=== PATIENT | male | born 1970 | race African-American/Black ===

== ENCOUNTER 2018-07-17 05:29 | Inpatient (IN) ==
[2018-07-17 05:55] LABS: Bilirubin,Urine Negative (Negative); Blood,Urine Negative (Negative); Clarity,Urine Clear (Clear); Color,Urine Yellow (Yellow); Glucose,Urine (UA) Normal (Normal); Ketones,Urine Negative (Negative); Leukocyte Esterase,Urine Negative (Negative); Nitrite,Urine Negative (Negative); Protein,Urine Negative (Neg-Trace); Specific Gravity,Urine 1.017 (1.010-1.025); Urobilinogen,Urine Normal (Normal)
--- NOTE | 2018-07-17 05:56 | Emergency Department Note ---
Disposition Clinical Impression: Suicidal ideation Disposition: Still a Patient Condition: Fair Referrals: NONE,PCP [Primary Care Provider] - Forms: ED Satisfaction Letter Psych HPI - General Chief Complaint: ED Psychiatric Symptoms Stated Complaint: SI Time Seen by Provider: 07/17/18 05:37 Source: patient - Related Data Allergies Allergy/AdvReac Type Severity Reaction Status Date / Time No Known Allergies Allergy Verified 03/05/17 16:57 Past Medical History - Past Medical History Medical history: Reports: no medical history Psychiatric history: Reports: anxiety, depression, previous psychiatric hospitalization - Social History Smoking Status: Current every day smoker Smokeless Tobacco Status: No Alcohol use: Reports: occasionally Drug use: Reports: cocaine, marijuana Physical Exam - General Limitations: no limitations General appearance: alert, in no apparent distress Course Vital Signs Temperature 97.6 F 07/17/18 05:33 Pulse Rate 69 07/17/18 05:33 Respiratory Rate 16 07/17/18 05:33 Blood Pressure 138/95 07/17/18 05:33 O2 Sat by Pulse Oximetry 97 07/17/18 05:33 Temperature 97.6 F 07/17/18 05:33 Pulse Rate 69 07/17/18 05:33 Respiratory Rate 16 07/17/18 05:33 Blood Pressure 138/95 07/17/18 05:33 O2 Sat by Pulse Oximetry 97 07/17/18 05:33 Oxygen Delivery Oxygen Delivery Room Air Psych - Lab Data Result diagrams: 07/17/18 05:37 07/17/18 05:37 Lab Results 07/17/18 07/17/18 07/17/18 Range/Units 05:37 05:37 05:43 WBC 8.7 (4.3-11.1) K/mcL RBC 5.35 (4.19-5.50) M/mcL Hgb 15.2 (12.9-16.9) g/dL Hct 44.1 (37.5-50.1) % MCV 82.4 L (83.0-100.0) fL MCH 28.4 (28.0-33.3) pg MCHC 34.5 (31.6-35.5) g/dL RDW 12.9 (11.5-14.5) % Plt Count 532 H (140-400) K/mcL MPV 8.8 L (9.4-12.4) fL Immature Gran % 0.3 (0-4) % Seg Neutrophils % 65.3 % Lymphocytes % 22.6 % Monocytes % 9.8 % Eosinophils % 1.4 % Basophils % 0.6 % Neutrophils # 5.7 (1.6-8.9) K/mcL Lymphocytes # 2.0 (0.6-4.6) K/mcL Monocytes # 0.9 (0.0-1.3) K/mcL Eosinophils # 0.1 (0.0-0.6) K/mcL Basophils # 0.1 (0.0-0.2) K/mcL Sodium 136 (136-145) mEq/L Potassium 3.7 (3.5-5.1) mEq/L Chloride 102 (98-107) mEq/L Carbon Dioxide 26 (23-29) mEq/L BUN 16 (6-20) mg/dL Creatinine 1.27 (0.70-1.30) mg/dL Est GFR ( Amer) > 60 (> 60) Est GFR (Non-Af Amer) > 60 (> 60) BUN/Creatinine Ratio 13 (6-26) Glucose 92 (70-105) mg/dL Calculated Osmolality 283 (280-300) Calcium 9.8 (8.6-10.3) mg/dL Urine Color Yellow (Yellow) Urine Clarity Clear (Clear) Urine pH 6.0 (5.0-8.0) pH Units Ur Specific [place] 1.017 (1.010-1.025) Urine Protein Negative (Neg-Trace) mg/dL Urine Glucose (UA) Normal (Normal) mg/dL Urine Ketones Negative (Negative) mg/dL Urine Blood Negative (Negative) Urine Nitrite Negative (Negative) Urine Bilirubin Negative (Negative) Urine Urobilinogen Normal (Normal) mg/dL Ur Leukocyte Esterase Negative (Negative) Salicylates < 2.5 L (15.0-30.0) mg/dL Urine Opiates Screen (Ohvxgu=174) ng/mL Acetaminophen < 10 L (10-20) mcg/mL Ur Barbiturates Screen (Sfckbj=045) ng/mL Ur Phencyclidine Scrn (Cutoff=25) ng/mL Ur Amphetamines Screen (Klyxjj=5929) ng/mL U Benzodiazepines Scrn (Aydlta=544) ng/mL Urine Cocaine Screen (Cutoff= 300) ng/mL U Marijuana (THC) Screen (Cutoff = 50) ng/mL Ur Drug Screen Interp Ethyl Alcohol < 10 (Less than 10) mg/dL 07/17/18 Range/Units 05:43 WBC (4.3-11.1) K/mcL RBC (4.19-5.50) M/mcL Hgb (12.9-16.9) g/dL Hct (37.5-50.1) % MCV (83.0-100.0) fL MCH (28.0-33.3) pg MCHC (31.6-35.5) g/dL RDW (11.5-14.5) % Plt Count (140-400) K/mcL MPV (9.4-12.4) fL Immature Gran % (0-4) % Seg Neutrophils % % Lymphocytes % % Monocytes % % Eosinophils % % Basophils % % Neutrophils # (1.6-8.9) K/mcL Lymphocytes # (0.6-4.6) K/mcL Monocytes # (0.0-1.3) K/mcL Eosinophils # (0.0-0.6) K/mcL Basophils # (0.0-0.2) K/mcL Sodium (136-145) mEq/L Potassium (3.5-5.1) mEq/L Chloride (98-107) mEq/L Carbon Dioxide (23-29) mEq/L BUN (6-20) mg/dL Creatinine (0.70-1.30) mg/dL Est GFR ( Amer) (> 60) Est GFR (Non-Af Amer) (> 60) BUN/Creatinine Ratio (6-26) Glucose (70-105) mg/dL Calculated Osmolality (280-300) Calcium (8.6-10.3) mg/dL Urine Color (Yellow) Urine Clarity (Clear) Urine pH (5.0-8.0) pH Units Ur Specific [place] (1.010-1.025) Urine Protein (Neg-Trace) mg/dL Urine Glucose (UA) (Normal) mg/dL Urine Ketones (Negative) mg/dL Urine Blood (Negative) Urine Nitrite (Negative) Urine Bilirubin (Negative) Urine Urobilinogen (Normal) mg/dL Ur Leukocyte Esterase (Negative) Salicylates (15.0-30.0) mg/dL Urine Opiates Screen Negative (Duxmmu=854) ng/mL Acetaminophen (10-20) mcg/mL Ur Barbiturates Screen Negative (Qnqjax=554) ng/mL Ur Phencyclidine Scrn Negative (Cutoff=25) ng/mL Ur Amphetamines Screen Positive H (Xvohto=9542) ng/mL U Benzodiazepines Scrn Negative (Mugfol=676) ng/mL Urine Cocaine Screen Positive H (Cutoff= 300) ng/mL U Marijuana (THC) Screen Negative (Cutoff = 50) ng/mL Ur Drug Screen Interp See Below Ethyl Alcohol (Less than 10) mg/dL Psychiatric Medical Clearance - Medical Clearance Checklist Medical History: No Social History Section defined Current Vitals: Last Vital Signs Temp 97.6 F 07/17/18 05:33 Pulse 69 07/17/18 05:33 Resp 16 07/17/18 05:33 BP 138/95 07/17/18 05:33 Pulse Ox 97 07/17/18 05:33 Psychiatric Lab Panel: Drug Levels and Toxicity 07/17/18 07/17/18 05:37 05:43 Urine Opiates Screen Negative Acetaminophen < 10 L Ur Barbiturates Screen Negative Ur Phencyclidine Scrn Negative Ur Amphetamines Screen Positive H U Benzodiazepines Scrn Negative Urine Cocaine Screen Positive H U Marijuana (THC) Screen Negative Ethyl Alcohol < 10 Abnormal Labs: Abnormal lab results MCV 82.4 fL (83.0-100.0) L 07/17/18 05:37 Plt Count 532 K/mcL (140-400) H 07/17/18 05:37 MPV 8.8 fL (9.4-12.4) L 07/17/18 05:37 Salicylates < 2.5 mg/dL (15.0-30.0) L 07/17/18 05:37 Acetaminophen < 10 mcg/mL (10-20) L 07/17/18 05:37 Ur Amphetamines Screen Positive ng/mL (Pqpwzz=9840) H 07/17/18 05:43 Urine Cocaine Screen Positive ng/mL (Cutoff= 300) H 07/17/18 05:43 Statement of Medical Clearance: I have evaluated the patient, reviewed diagnostic information, and certify that the patient's medical condition is sufficiently stable that transfer to the psychiatric unit does not pose a significant risk of deterioration. Attestation Statement - Attestation Attestation: Resident Attestation: I examined this patient and my medical decision making was reviewed with the Resident Physician. I agree with the documented findings, disposition and treatment plan as described except to the extent set forth below. We independently had [id number] contact with the patient. Resident Tavon Morris Patient with previous psychiatric history including taking mood stabilizer and antianxiety medication which she has not had for the last 2 months, presenting for evaluation of SI. Patient with recent cocaine use. Patient having thoughts of SI wanting to shoot himself. Access to guns. Guns were given to his son by his girlfriend. Patient will undergo further evaluation for suicidal ideation. No acute distress, conversational, equal and symmetric chest rise, ambulates without difficulty. Please see resident note for further details and disposition.
--- NOTE | 2018-07-17 05:59 | Emergency Department Note ---
Disposition Clinical Impression: Suicidal ideation Disposition: Still a Patient Condition: Fair Referrals: NONE,PCP [Primary Care Provider] - Forms: ED Satisfaction Letter General Adult HPI - General Chief complaint: ED Psychiatric Symptoms Stated complaint: SI Time Seen by Provider: 07/17/18 05:37 Source: patient Mode of arrival: ambulatory Limitations: no limitations Nursing Notes Reviewed: Yes Vital Signs Reviewed: Yes - History of Present Illness HPI Narrative: 48-year-old male presenting to the emergency department chief complaint of suicidal ideation. According to the patient he has had suicidal ideation for the past 3 days. He had a plan of shooting himself. His girlfriend gave all of his guns to his son so he would not have access. Patient denies homicidal ideation. Denies auditory or visual hallucinations. Patient states he has been hospitalized for this previously but was years ago. He was on a mood stabilizer and antianxiety medications but stopped taking it 12 months ago because he was feeling better. Patient does disclose cocaine abuse. At this time patient has no medical concerns or complaints. Pain Scale: 0 - Related Data Allergies Allergy/AdvReac Type Severity Reaction Status Date / Time No Known Allergies Allergy Verified 03/05/17 16:57 All systems ED: reviewed and negative except as stated. Constitutional: Denies: fever, chills, weakness Eyes: Reports: as per HPI ENT ED: Reports: as per HPI Cardiovascular: Denies: chest pain, palpitations, dyspnea on exertion Respiratory: Denies: cough, dyspnea, wheezes Gastrointestinal: Denies: abdominal pain, nausea, vomiting Genitourinary: Reports: as per HPI Musculoskeletal: Reports: as per HPI Integumentary: Reports: as per HPI Neurological: Reports: as per HPI Psychiatric: Reports: depression, suicidal thoughts. Denies: homicidal thoughts , auditory hallucinations, visual hallucinations Endocrine: Reports: as per HPI Hematological/Lymphatic: Reports: as per HPI Allergic/Immunologic: Reports: as per HPI Past Medical History - Past Medical History Attestation: Yes The following information was validated with the patient. Medical history: Reports: no medical history Psychiatric history: Reports: anxiety, depression, previous psychiatric hospitalization - Social History Smoking Status: Current every day smoker Smokeless Tobacco Status: No Alcohol use: Reports: occasionally Drug use: Reports: cocaine, marijuana Physical Exam - General Limitations: no limitations General appearance: alert, in no apparent distress - Head Head exam: atraumatic, normocephalic, normal inspection - Eye Eye exam: Present: normal appearance. Absent: scleral icterus, conjunctival injection - ENT ENT exam: normal exam, mucous membranes moist - Neck Neck exam: Present: normal inspection, full ROM. Absent: tenderness, meningismus - Chest Chest inspection: Present: normal inspection, symmetric chest wall rise. Absent : tenderness, rash - Respiratory Respiratory exam: Present: normal lung sounds bilaterally. Absent: respiratory distress, wheezes - Cardiovascular Cardiovascular exam: Present: regular rate, normal rhythm, normal heart sounds - Abdominal Exam Abdominal exam: Present: soft, Non-Tender. Absent: distention, guarding, rebound - Extremities Exam Extremities exam: Present: normal inspection, full ROM - Neurological Exam Neurological exam: Present: alert, oriented X3 - Psychiatric Psychiatric exam: Present: normal affect, normal mood - Skin Skin exam: Present: warm, intact Course Course Narrative: 48-year-old male presenting for suicidal ideation. Patient did have a plan. On physical exam he is alert and oriented 3 and hemodynamically stable. No medical concerns or complaints. Physical exam benign. At this time will obtain medical clearance labs and urine analysis. We will then consult our psychiatric services 1A. Disposition pending psychiatric evaluation. Patient agrees with this plan. - Reevaluation(s) Reevaluation #1: So far patient's laboratory analysis benign. Pending psychiatric evaluation we will sign the patient out to the day team. Vital Signs Temperature 97.6 F 07/17/18 05:33 Pulse Rate 69 07/17/18 05:33 Respiratory Rate 16 07/17/18 05:33 Blood Pressure 138/95 07/17/18 05:33 O2 Sat by Pulse Oximetry 97 07/17/18 05:33 Temperature 97.6 F 07/17/18 05:33 Pulse Rate 69 07/17/18 05:33 Respiratory Rate 16 07/17/18 05:33 Blood Pressure 138/95 07/17/18 05:33 O2 Sat by Pulse Oximetry 97 07/17/18 05:33 Oxygen Delivery Oxygen Delivery Room Air Medical Decision Making - Lab Data Result diagrams: 07/17/18 05:37 Lab Results 07/17/18 07/17/18 07/17/18 Range/Units 05:37 05:43 05:43 WBC 8.7 (4.3-11.1) K/mcL RBC 5.35 (4.19-5.50) M/mcL Hgb 15.2 (12.9-16.9) g/dL Hct 44.1 (37.5-50.1) % MCV 82.4 L (83.0-100.0) fL MCH 28.4 (28.0-33.3) pg MCHC 34.5 (31.6-35.5) g/dL RDW 12.9 (11.5-14.5) % Plt Count 532 H (140-400) K/mcL MPV 8.8 L (9.4-12.4) fL Immature Gran % 0.3 (0-4) % Seg Neutrophils % 65.3 % Lymphocytes % 22.6 % Monocytes % 9.8 % Eosinophils % 1.4 % Basophils % 0.6 % Neutrophils # 5.7 (1.6-8.9) K/mcL Lymphocytes # 2.0 (0.6-4.6) K/mcL Monocytes # 0.9 (0.0-1.3) K/mcL Eosinophils # 0.1 (0.0-0.6) K/mcL Basophils # 0.1 (0.0-0.2) K/mcL Urine Color Yellow (Yellow) Urine Clarity Clear (Clear) Urine pH 6.0 (5.0-8.0) pH Units Ur Specific [place] 1.017 (1.010-1.025) Urine Protein Negative (Neg-Trace) mg/dL Urine Glucose (UA) Normal (Normal) mg/dL Urine Ketones Negative (Negative) mg/dL Urine Blood Negative (Negative) Urine Nitrite Negative (Negative) Urine Bilirubin Negative (Negative) Urine Urobilinogen Normal (Normal) mg/dL Ur Leukocyte Esterase Negative (Negative) Urine Opiates Screen Negative (Rpxnpk=364) ng/mL Ur Barbiturates Screen Negative (Js[place]aw=071) ng/mL Ur Phencyclidine Scrn Negative (Cutoff=25) ng/mL Ur Amphetamines Screen Positive H (Bsbjde=6149) ng/mL U Benzodiazepines Scrn Negative (Ksonvd=113) ng/mL Urine Cocaine Screen Positive H (Cutoff= 300) ng/mL U Marijuana (THC) Screen Negative (Cutoff = 50) ng/mL Ur Drug Screen Interp See Below
[2018-07-17 06:02] LABS: Amphetamine Screen,Urine Positive ng/mL (Cutoff=1000); Barbiturate Screen,Urine Negative ng/mL (Cutoff=200); Benzodiazepines Screen,Urine Negative ng/mL (Cutoff=200); Cannabinoid Screen,Urine Negative ng/mL (Cutoff = 50); Cocaine Screen,Urine Positive ng/mL (Cutoff= 300); Opiate Screen,Urine Negative ng/mL (Cutoff=300); Phencyclidine Screen,Urine Negative ng/mL (Cutoff=25)
[2018-07-17 06:02] LABS: Basophils # 0.1 K/mcL (0.0-0.2); Basophils % 0.6 %; Eosinophils # 0.1 K/mcL (0.0-0.6); Eosinophils % 1.4 %; Hematocrit 44.1 % (37.5-50.1); Hemoglobin 15.2 g/dL (12.9-16.9); Immature Granulocytes % 0.3 % (0-4); Lymphocytes % 22.6 %; Mean Corpuscular HGB Conc 34.5 g/dL (31.6-35.5); Mean Corpuscular Hemoglobin 28.4 pg (28.0-33.3); Mean Corpuscular Volume 82.4 fL (83.0-100.0); Mean Platelet Volume 8.8 fL (9.4-12.4); Monocytes # 0.9 K/mcL (0.0-1.3); Monocytes % 9.8 %; Neutrophils # 5.7 K/mcL (1.6-8.9); Platelet Count 532 K/mcL (140-400); Red Blood Count 5.35 M/mcL (4.19-5.50); Red Cell Distribution Width 12.9 % (11.5-14.5); Segmented Neutrophils % 65.3 %
[2018-07-17 06:27] LABS: Acetaminophen < 10 mcg/mL (10-20); BUN/Creatinine Ratio 13 (6-26); Blood Urea Nitrogen 16 mg/dL (6-20); Calcium 9.8 mg/dL (8.6-10.3); Carbon Dioxide 26 mEq/L (23-29); Chloride 102 mEq/L (98-107); Ethanol < 10 mg/dL (Less than 10); Glucose 92 mg/dL (70-105); Osmolality,Calculated 283 (280-300); Potassium 3.7 mEq/L (3.5-5.1); Salicylate < 2.5 mg/dL (15.0-30.0); Sodium 136 mEq/L (136-145); eGFR For Non-African Americans > 60 (> 60)
[2018-07-17] MEDS ORDERED: Acetaminophen 325 MG TABLET PO PRN (10:02)
[2018-07-17] MEDS ORDERED: MOM Conc 10 ML UD.LIQ PO PRN (10:02)
[2018-07-17] MEDS ORDERED: Haloperidol Lactate 5 MG/ML VIAL IM PRN (10:02)
[2018-07-17] MEDS ORDERED: *HR* LORazepam 2 MG/ML VIAL IM PRN (10:02)
[2018-07-17] MEDS ORDERED: *HR* LORazepam 1 MG TABLET PO PRN (10:02)
[2018-07-17] MEDS ORDERED: Mag Hydrox/Al Hydrox/Simeth 30 ML UDC PO PRN (10:02)
--- NOTE | 2018-07-17 11:25 | Emergency Department Note ---
Disposition Clinical Impression: Suicidal ideation Disposition: Transfer Psychiatric Hosp Condition: Fair Psych HPI - General Chief Complaint: ED Psychiatric Symptoms Stated Complaint: SI Time Seen by Provider: 07/17/18 05:37 Source: patient Mode of arrival: ambulatory Limitations: no limitations Nursing Notes Reviewed: Yes Vital Signs Reviewed: Yes - Related Data Home Medications Medication Instructions Recorded Confirmed Venlafaxine HCl [Venlafaxine HCl 75 mg PO QAM 07/17/18 07/17/18 ER] traZODone [TraZODone] 50 mg PO HS PRN 07/17/18 07/17/18 Allergies Allergy/AdvReac Type Severity Reaction Status Date / Time No Known Allergies Allergy Verified 03/05/17 16:57 Constitutional: Denies: fever, chills, weakness Eyes: Reports: as per HPI ENT ED: Reports: as per HPI Cardiovascular: Denies: chest pain, palpitations, dyspnea on exertion Respiratory: Denies: cough, dyspnea, wheezes Gastrointestinal: Denies: abdominal pain, nausea, vomiting Genitourinary: Reports: as per HPI Musculoskeletal: Reports: as per HPI Integumentary: Reports: as per HPI Neurological: Reports: as per HPI Psychiatric: Reports: depression, suicidal thoughts. Denies: homicidal thoughts, auditory hallucinations, visual hallucinations Endocrine: Reports: as per HPI Hematological/Lymphatic: Reports: as per HPI Allergic/Immunologic: Reports: as per HPI Past Medical History - Past Medical History Medical history: Reports: no medical history Psychiatric history: Reports: anxiety, depression, previous psychiatric hospitalization - Social History Smoking Status: Current every day smoker Smokeless Tobacco Status: No Alcohol use: Reports: occasionally Drug use: Reports: cocaine, marijuana Physical Exam - General Limitations: no limitations General appearance: alert, in no apparent distress Course Vital Signs Temperature 97.6 F 07/17/18 05:33 Pulse Rate 69 07/17/18 05:33 Respiratory Rate 16 07/17/18 05:33 Blood Pressure 138/95 07/17/18 05:33 O2 Sat by Pulse Oximetry 97 07/17/18 05:33 Temperature 98.4 F 07/17/18 10:45 Pulse Rate 63 07/17/18 10:45 Respiratory Rate 18 07/17/18 10:45 Blood Pressure 127/84 07/17/18 10:45 O2 Sat by Pulse Oximetry 98 07/17/18 10:45 Oxygen Delivery Oxygen Delivery Room Air Psych - MDM Narrative Medical decision making narrative: Pt received in sign out pending placement. Pt is scheduled for transport to [facility] at 7:30 AM. He was signed out pending placement. Patient had no further concerns or complaints. He went to the [facility] without delay or incident. - Lab Data Result diagrams: 07/17/18 05:37 07/17/18 05:37 Lab Results 07/17/18 07/17/18 07/17/18 Range/Units 05:37 05:37 05:43 WBC 8.7 (4.3-11.1) K/mcL RBC 5.35 (4.19-5.50) M/mcL Hgb 15.2 (12.9-16.9) g/dL Hct 44.1 (37.5-50.1) % MCV 82.4 L (83.0-100.0) fL MCH 28.4 (28.0-33.3) pg MCHC 34.5 (31.6-35.5) g/dL RDW 12.9 (11.5-14.5) % Plt Count 532 H (140-400) K/mcL MPV 8.8 L (9.4-12.4) fL Immature Gran % 0.3 (0-4) % Seg Neutrophils % 65.3 % Lymphocytes % 22.6 % Monocytes % 9.8 % Eosinophils % 1.4 % Basophils % 0.6 % Neutrophils # 5.7 (1.6-8.9) K/mcL Lymphocytes # 2.0 (0.6-4.6) K/mcL Monocytes # 0.9 (0.0-1.3) K/mcL Eosinophils # 0.1 (0.0-0.6) K/mcL Basophils # 0.1 (0.0-0.2) K/mcL Sodium 136 (136-145) mEq/L Potassium 3.7 (3.5-5.1) mEq/L Chloride 102 (98-107) mEq/L Carbon Dioxide 26 (23-29) mEq/L BUN 16 (6-20) mg/dL Creatinine 1.27 (0.70-1.30) mg/dL Est GFR ( Amer) > 60 (> 60) Est GFR (Non-Af Amer) > 60 (> 60) BUN/Creatinine Ratio 13 (6-26) Glucose 92 (70-105) mg/dL Calculated Osmolality 283 (280-300) Calcium 9.8 (8.6-10.3) mg/dL Urine Color Yellow (Yellow) Urine Clarity Clear (Clear) Urine pH 6.0 (5.0-8.0) pH Units Ur Specific [place] 1.017 (1.010-1.025) Urine Protein Negative (Neg-Trace) mg/dL Urine Glucose (UA) Normal (Normal) mg/dL Urine Ketones Negative (Negative) mg/dL Urine Blood Negative (Negative) Urine Nitrite Negative (Negative) Urine Bilirubin Negative (Negative) Urine Urobilinogen Normal (Normal) mg/dL Ur Leukocyte Esterase Negative (Negative) Salicylates < 2.5 L (15.0-30.0) mg/dL Urine Opiates Screen (Qvwltw=418) ng/mL Acetaminophen < 10 L (10-20) mcg/mL Ur Barbiturates Screen (Jssspc=365) ng/mL Ur Phencyclidine Scrn (Cutoff=25) ng/mL Ur Amphetamines Screen (Nmlrlz=3739) ng/mL U Benzodiazepines Scrn (Lxknqe=634) ng/mL Urine Cocaine Screen (Cutoff= 300) ng/mL U Marijuana (THC) Screen (Cutoff = 50) ng/mL Ur Drug Screen Interp Ethyl Alcohol < 10 (Less than 10) mg/dL 07/17/18 Range/Units 05:43 WBC (4.3-11.1) K/mcL RBC (4.19-5.50) M/mcL Hgb (12.9-16.9) g/dL Hct (37.5-50.1) % MCV (83.0-100.0) fL MCH (28.0-33.3) pg MCHC (31.6-35.5) g/dL RDW (11.5-14.5) % Plt Count (140-400) K/mcL MPV (9.4-12.4) fL Immature Gran % (0-4) % Seg Neutrophils % % Lymphocytes % % Monocytes % % Eosinophils % % Basophils % % Neutrophils # (1.6-8.9) K/mcL Lymphocytes # (0.6-4.6) K/mcL Monocytes # (0.0-1.3) K/mcL Eosinophils # (0.0-0.6) K/mcL Basophils # (0.0-0.2) K/mcL Sodium (136-145) mEq/L Potassium (3.5-5.1) mEq/L Chloride (98-107) mEq/L Carbon Dioxide (23-29) mEq/L BUN (6-20) mg/dL Creatinine (0.70-1.30) mg/dL Est GFR ( Amer) (> 60) Est GFR (Non-Af Amer) (> 60) BUN/Creatinine Ratio (6-26) Glucose (70-105) mg/dL Calculated Osmolality (280-300) Calcium (8.6-10.3) mg/dL Urine Color (Yellow) Urine Clarity (Clear) Urine pH (5.0-8.0) pH Units Ur Specific [place] (1.010-1.025) Urine Protein (Neg-Trace) mg/dL Urine Glucose (UA) (Normal) mg/dL Urine Ketones (Negative) mg/dL Urine Blood (Negative) Urine Nitrite (Negative) Urine Bilirubin (Negative) Urine Urobilinogen (Normal) mg/dL Ur Leukocyte Esterase (Negative) Salicylates (15.0-30.0) mg/dL Urine Opiates Screen Negative (Xqnplg=476) ng/mL Acetaminophen (10-20) mcg/mL Ur Barbiturates Screen Negative (Mcnprq=820) ng/mL Ur Phencyclidine Scrn Negative (Cutoff=25) ng/mL Ur Amphetamines Screen Positive H (Ckmmie=9621) ng/mL U Benzodiazepines Scrn Negative (Lqwarh=111) ng/mL Urine Cocaine Screen Positive H (Cutoff= 300) ng/mL U Marijuana (THC) Screen Negative (Cutoff = 50) ng/mL Ur Drug Screen Interp See Below Ethyl Alcohol (Less than 10) mg/dL Psychiatric Medical Clearance - Medical Clearance Checklist Medical History: No Social History Section defined Current Vitals: Last Vital Signs Temp 98.4 F 07/17/18 10:45 Pulse 63 07/17/18 10:45 Resp 18 07/17/18 10:45 BP 127/84 07/17/18 10:45 Pulse Ox 98 07/17/18 10:45 Psychiatric Lab Panel: Drug Levels and Toxicity 07/17/18 07/17/18 05:37 05:43 Urine Opiates Screen Negative Acetaminophen < 10 L Ur Barbiturates Screen Negative Ur Phencyclidine Scrn Negative Ur Amphetamines Screen Positive H U Benzodiazepines Scrn Negative Urine Cocaine Screen Positive H U Marijuana (THC) Screen Negative Ethyl Alcohol < 10 Abnormal Labs: Abnormal lab results MCV 82.4 fL (83.0-100.0) L 07/17/18 05:37 Plt Count 532 K/mcL (140-400) H 07/17/18 05:37 MPV 8.8 fL (9.4-12.4) L 07/17/18 05:37 Salicylates < 2.5 mg/dL (15.0-30.0) L 07/17/18 05:37 Acetaminophen < 10 mcg/mL (10-20) L 07/17/18 05:37 Ur Amphetamines Screen Positive ng/mL (Wbwfhn=9689) H 07/17/18 05:43 Urine Cocaine Screen Positive ng/mL (Cutoff= 300) H 07/17/18 05:43 Statement of Medical Clearance: I have evaluated the patient, reviewed diagnostic information, and certify that the patient's medical condition is sufficiently stable that transfer to the psychiatric unit does not pose a significant risk of deterioration.
--- NOTE | 2018-07-17 11:31 | Emergency Department Note ---
Disposition Clinical Impression: Suicidal ideation Disposition: Admitted As Inpatient Condition: Fair Psych HPI - General Chief Complaint: ED Psychiatric Symptoms Stated Complaint: SI Time Seen by Provider: 07/17/18 05:37 Source: patient Mode of arrival: ambulatory Limitations: no limitations Nursing Notes Reviewed: Yes Vital Signs Reviewed: Yes - Related Data Home Medications Medication Instructions Recorded Confirmed Venlafaxine HCl [Venlafaxine HCl 75 mg PO QAM 07/17/18 07/17/18 ER] traZODone [TraZODone] 50 mg PO HS PRN 07/17/18 07/17/18 Allergies Allergy/AdvReac Type Severity Reaction Status Date / Time No Known Allergies Allergy Verified 03/05/17 16:57 Constitutional: Denies: fever, chills, weakness Eyes: Reports: as per HPI ENT ED: Reports: as per HPI Cardiovascular: Denies: chest pain, palpitations, dyspnea on exertion Respiratory: Denies: cough, dyspnea, wheezes Gastrointestinal: Denies: abdominal pain, nausea, vomiting Genitourinary: Reports: as per HPI Musculoskeletal: Reports: as per HPI Integumentary: Reports: as per HPI Neurological: Reports: as per HPI Psychiatric: Reports: depression, suicidal thoughts. Denies: homicidal thoughts , auditory hallucinations, visual hallucinations Endocrine: Reports: as per HPI Hematological/Lymphatic: Reports: as per HPI Allergic/Immunologic: Reports: as per HPI Past Medical History - Past Medical History Medical history: Reports: no medical history Psychiatric history: Reports: anxiety, depression, previous psychiatric hospitalization - Social History Smoking Status: Current every day smoker Smokeless Tobacco Status: No Alcohol use: Reports: occasionally Drug use: Reports: cocaine, marijuana Physical Exam - General Limitations: no limitations General appearance: alert, in no apparent distress Course Vital Signs Temperature 97.6 F 07/17/18 05:33 Pulse Rate 69 07/17/18 05:33 Respiratory Rate 16 07/17/18 05:33 Blood Pressure 138/95 07/17/18 05:33 O2 Sat by Pulse Oximetry 97 07/17/18 05:33 Temperature 98.4 F 07/17/18 10:45 Pulse Rate 63 07/17/18 10:45 Respiratory Rate 18 07/17/18 10:45 Blood Pressure 127/84 07/17/18 10:45 O2 Sat by Pulse Oximetry 98 07/17/18 10:45 Oxygen Delivery Oxygen Delivery Room Air Psych - MDM Narrative Medical decision making narrative: 48-year-old male received in signout pending behavioral health evaluation. Patient has had suicidal ideation with thoughts of ending his life by shooting himself. Evaluated him in the emergency department and found to be required inpatient observation. Patient will be admitted to the hospital at [facility]. Patient is comfortable with this plan of action. - Lab Data Result diagrams: 07/17/18 05:37 07/17/18 05:37 Lab Results 07/17/18 07/17/18 07/17/18 Range/Units 05:37 05:37 05:43 WBC 8.7 (4.3-11.1) K/mcL RBC 5.35 (4.19-5.50) M/mcL Hgb 15.2 (12.9-16.9) g/dL Hct 44.1 (37.5-50.1) % MCV 82.4 L (83.0-100.0) fL MCH 28.4 (28.0-33.3) pg MCHC 34.5 (31.6-35.5) g/dL RDW 12.9 (11.5-14.5) % Plt Count 532 H (140-400) K/mcL MPV 8.8 L (9.4-12.4) fL Immature Gran % 0.3 (0-4) % Seg Neutrophils % 65.3 % Lymphocytes % 22.6 % Monocytes % 9.8 % Eosinophils % 1.4 % Basophils % 0.6 % Neutrophils # 5.7 (1.6-8.9) K/mcL Lymphocytes # 2.0 (0.6-4.6) K/mcL Monocytes # 0.9 (0.0-1.3) K/mcL Eosinophils # 0.1 (0.0-0.6) K/mcL Basophils # 0.1 (0.0-0.2) K/mcL Sodium 136 (136-145) mEq/L Potassium 3.7 (3.5-5.1) mEq/L Chloride 102 (98-107) mEq/L Carbon Dioxide 26 (23-29) mEq/L BUN 16 (6-20) mg/dL Creatinine 1.27 (0.70-1.30) mg/dL Est GFR ( Amer) > 60 (> 60) Est GFR (Non-Af Amer) > 60 (> 60) BUN/Creatinine Ratio 13 (6-26) Glucose 92 (70-105) mg/dL Calculated Osmolality 283 (280-300) Calcium 9.8 (8.6-10.3) mg/dL Urine Color Yellow (Yellow) Urine Clarity Clear (Clear) Urine pH 6.0 (5.0-8.0) pH Units Ur Specific [place] 1.017 (1.010-1.025) Urine Protein Negative (Neg-Trace) mg/dL Urine Glucose (UA) Normal (Normal) mg/dL Urine Ketones Negative (Negative) mg/dL Urine Blood Negative (Negative) Urine Nitrite Negative (Negative) Urine Bilirubin Negative (Negative) Urine Urobilinogen Normal (Normal) mg/dL Ur Leukocyte Esterase Negative (Negative) Salicylates < 2.5 L (15.0-30.0) mg/dL Urine Opiates Screen (Qsgkfr=374) ng/mL Acetaminophen < 10 L (10-20) mcg/mL Ur Barbiturates Screen (Dvqeyp=958) ng/mL Ur Phencyclidine Scrn (Cutoff=25) ng/mL Ur Amphetamines Screen (Atvcnn=1199) ng/mL U Benzodiazepines Scrn (Tzstri=716) ng/mL Urine Cocaine Screen (Cutoff= 300) ng/mL U Marijuana (THC) Screen (Cutoff = 50) ng/mL Ur Drug Screen Interp Ethyl Alcohol < 10 (Less than 10) mg/dL 07/17/18 Range/Units 05:43 WBC (4.3-11.1) K/mcL RBC (4.19-5.50) M/mcL Hgb (12.9-16.9) g/dL Hct (37.5-50.1) % MCV (83.0-100.0) fL MCH (28.0-33.3) pg MCHC (31.6-35.5) g/dL RDW (11.5-14.5) % Plt Count (140-400) K/mcL MPV (9.4-12.4) fL Immature Gran % (0-4) % Seg Neutrophils % % Lymphocytes % % Monocytes % % Eosinophils % % Basophils % % Neutrophils # (1.6-8.9) K/mcL Lymphocytes # (0.6-4.6) K/mcL Monocytes # (0.0-1.3) K/mcL Eosinophils # (0.0-0.6) K/mcL Basophils # (0.0-0.2) K/mcL Sodium (136-145) mEq/L Potassium (3.5-5.1) mEq/L Chloride (98-107) mEq/L Carbon Dioxide (23-29) mEq/L BUN (6-20) mg/dL Creatinine (0.70-1.30) mg/dL Est GFR ( Amer) (> 60) Est GFR (Non-Af Amer) (> 60) BUN/Creatinine Ratio (6-26) Glucose (70-105) mg/dL Calculated Osmolality (280-300) Calcium (8.6-10.3) mg/dL Urine Color (Yellow) Urine Clarity (Clear) Urine pH (5.0-8.0) pH Units Ur Specific [place] (1.010-1.025) Urine Protein (Neg-Trace) mg/dL Urine Glucose (UA) (Normal) mg/dL Urine Ketones (Negative) mg/dL Urine Blood (Negative) Urine Nitrite (Negative) Urine Bilirubin (Negative) Urine Urobilinogen (Normal) mg/dL Ur Leukocyte Esterase (Negative) Salicylates (15.0-30.0) mg/dL Urine Opiates Screen Negative (Jebcep=913) ng/mL Acetaminophen (10-20) mcg/mL Ur Barbiturates Screen Negative (Xbdjju=171) ng/mL Ur Phencyclidine Scrn Negative (Cutoff=25) ng/mL Ur Amphetamines Screen Positive H (Ypezmw=1236) ng/mL U Benzodiazepines Scrn Negative (Otjpir=294) ng/mL Urine Cocaine Screen Positive H (Cutoff= 300) ng/mL U Marijuana (THC) Screen Negative (Cutoff = 50) ng/mL Ur Drug Screen Interp See Below Ethyl Alcohol (Less than 10) mg/dL Psychiatric Medical Clearance - Medical Clearance Checklist Medical History: No Social History Section defined Current Vitals: Last Vital Signs Temp 98.4 F 07/17/18 10:45 Pulse 63 07/17/18 10:45 Resp 18 07/17/18 10:45 BP 127/84 07/17/18 10:45 Pulse Ox 98 07/17/18 10:45 Psychiatric Lab Panel: Drug Levels and Toxicity 07/17/18 07/17/18 05:37 05:43 Urine Opiates Screen Negative Acetaminophen < 10 L Ur Barbiturates Screen Negative Ur Phencyclidine Scrn Negative Ur Amphetamines Screen Positive H U Benzodiazepines Scrn Negative Urine Cocaine Screen Positive H U Marijuana (THC) Screen Negative Ethyl Alcohol < 10 Abnormal Labs: Abnormal lab results MCV 82.4 fL (83.0-100.0) L 07/17/18 05:37 Plt Count 532 K/mcL (140-400) H 07/17/18 05:37 MPV 8.8 fL (9.4-12.4) L 07/17/18 05:37 Salicylates < 2.5 mg/dL (15.0-30.0) L 07/17/18 05:37 Acetaminophen < 10 mcg/mL (10-20) L 07/17/18 05:37 Ur Amphetamines Screen Positive ng/mL (Faqphp=2531) H 07/17/18 05:43 Urine Cocaine Screen Positive ng/mL (Cutoff= 300) H 07/17/18 05:43 Statement of Medical Clearance: I have evaluated the patient, reviewed diagnostic information, and certify that the patient's medical condition is sufficiently stable that transfer to the psychiatric unit does not pose a significant risk of deterioration.
[2018-07-17] MEDS: Nicotine 14 MG PATCH.TD24 TD SCH (12:38)
--- NOTE | 2018-07-17 14:44 | Psychiatry History & Physical ---
Date of Encounter: 07/17/18 Time of Encounter: 14:00 History of Present Illness Patient Stated Chief Complaint: Suicidal ideation and intoxication cocaine and amphetamine Medicare Admission Attestation: For traditional Medicare patients the provided hospital inpatient services are reasonable and necessary and in the case of services not specified as inpatient -only under 42 CFR 419.22 (n), that they are appropriately provided as inpatient services in accordance 42 CFR 412.3. For Critical Access Hospital the patient may reasonably be expected to be discharged or transferred to a hospital within 96 hours after admission to the Critical Access Hospital. Admitted From: Emergency Dept History of Present Illness: Mr. Elkins is a 48 year old male presented to the ED with complaint of depression and suicidal ideation triggered by his relapse into substance abuse UDS was positive for amphetamine and cocaine. Patient reported that he went on a binge for several days and feel hopeless and frustrated that she cannot stop. Patient had history of substance abuse treatment in the past at [facility] and [facility], he did not however comply with aftercare and medications and appointments. Patient reported to nursing staff that he has access to guns at home and he was thinking about shooting himself. Apparently the family moved the guns out of the house. Past Med Surg Social Fam HX - Past Medical History Medical history: no medical history - Past Psychiatric History Psychiatric history: Reports: other (Substance abuse treatment at [facility] and [facility]) - Social History Smoking Status: Current every day smoker Smokeless Tobacco Status: No Alcohol use: occasionally Drug use: cocaine, marijuana Medications & Allergies Venlafaxine HCl [Venlafaxine HCl ER] 75 mg PO QAM 07/17/18 [History] traZODone [TraZODone] 50 mg PO HS PRN 07/17/18 [History] 3 Allergy/AdvReac Type Severity Reaction Status Date / Time No Known Allergies Allergy Verified 03/05/17 16:57 Review of Systems Psychiatric: Reports: suicidal ideation Exam - HEENT Head exam IM: Present: atraumatic Eye exam IM: Present: EOMI, normal appearance, PERRL ENT exam IM: Present: normal exam - Neurological Neurological exam: Present: CN II-XII intact - Respiratory Respiratory exam IM: Present: CTAB - GI/Abdominal GI/Abdominal exam IM: Present: normal bowel sounds, soft. Absent: tenderness - Extremities Extremities exam IM: Present: full ROM - Skin Skin exam IM: Present: dry, warm - Constitutional Vitals: Temp Pulse Resp BP Pulse Ox 98.4 F 63 18 127/84 98 07/17/18 10:45 07/17/18 10:45 07/17/18 10:45 07/17/18 10:45 07/17/18 10:45 General appearance: age & developmentally appropriate, well-nourished, unkempt, average - Musculoskeletal Gait: normal Station: relaxed Strength & Tone: normal for patient - Psychiatric Patient Orientation: Yes Person, Yes Time, Yes Place Level of alertness: Alert Behavior: calm, cooperative, guarded, talkative Psychomotor activity: Normal Eye Contact: Maintains Eye Contact Mood Description: Euthymic/stable, Depressed, Labile Affect description: congruent with mood, labile Speech Volume: Normal Speech pattern: normal rate, normal rhythm, normal tone, fluent, spontaneous Language & Vocabulary: consistent with education Thought Process: Linear, Goal Oriented Thought Content: Yes Suicidal ideation, No Homicidal ideation, No Overt delusions Perceptual Disturbances: No Auditory hallucinations, No Visual hallucinations Attention Span Ability: Capable of Focused Attention Memory Description: Grossly Intact Patient Reliability: Reliable Historian Fund of knowledge: Yes abstraction ability, Yes average, Yes aware of current events Intelligence Estimate: Average Judgment: Limited Insight: Partial Results - Labs Labs: Laboratory Last Values WBC 8.7 K/mcL (4.3-11.1) 07/17/18 05:37 RBC 5.35 M/mcL (4.19-5.50) 07/17/18 05:37 Hgb 15.2 g/dL (12.9-16.9) 07/17/18 05:37 Hct 44.1 % (37.5-50.1) 07/17/18 05:37 MCV 82.4 fL (83.0-100.0) L 07/17/18 05:37 MCH 28.4 pg (28.0-33.3) 07/17/18 05:37 MCHC 34.5 g/dL (31.6-35.5) 07/17/18 05:37 RDW 12.9 % (11.5-14.5) 07/17/18 05:37 Plt Count 532 K/mcL (140-400) H 07/17/18 05:37 MPV 8.8 fL (9.4-12.4) L 07/17/18 05:37 Immature Gran % 0.3 % (0-4) 07/17/18 05:37 Seg Neutrophils % 65.3 % 07/17/18 05:37 Lymphocytes % 22.6 % 07/17/18 05:37 Monocytes % 9.8 % 07/17/18 05:37 Eosinophils % 1.4 % 07/17/18 05:37 Basophils % 0.6 % 07/17/18 05:37 Neutrophils # 5.7 K/mcL (1.6-8.9) 07/17/18 05:37 Lymphocytes # 2.0 K/mcL (0.6-4.6) 07/17/18 05:37 Monocytes # 0.9 K/mcL (0.0-1.3) 07/17/18 05:37 Eosinophils # 0.1 K/mcL (0.0-0.6) 07/17/18 05:37 Basophils # 0.1 K/mcL (0.0-0.2) 07/17/18 05:37 Sodium 136 mEq/L (136-145) 07/17/18 05:37 Potassium 3.7 mEq/L (3.5-5.1) 07/17/18 05:37 Chloride 102 mEq/L (98-107) 07/17/18 05:37 Carbon Dioxide 26 mEq/L (23-29) 07/17/18 05:37 BUN 16 mg/dL (6-20) 07/17/18 05:37 Creatinine 1.27 mg/dL (0.70-1.30) 07/17/18 05:37 Est GFR ( Amer) > 60 (> 60) 07/17/18 05:37 Est GFR (Non-Af Amer) > 60 (> 60) 07/17/18 05:37 BUN/Creatinine Ratio 13 (6-26) 07/17/18 05:37 Glucose 92 mg/dL (70-105) 07/17/18 05:37 Calculated Osmolality 283 (280-300) 07/17/18 05:37 Calcium 9.8 mg/dL (8.6-10.3) 07/17/18 05:37 Urine Color Yellow (Yellow) 07/17/18 05:43 Urine Clarity Clear (Clear) 07/17/18 05:43 Urine pH 6.0 pH Units (5.0-8.0) 07/17/18 05:43 Ur Specific [place] 1.017 (1.010-1.025) 07/17/18 05:43 Urine Protein Negative mg/dL (Neg-Trace) 07/17/18 05:43 Urine Glucose (UA) Normal mg/dL (Normal) 07/17/18 05:43 Urine Ketones Negative mg/dL (Negative) 07/17/18 05:43 Urine Blood Negative (Negative) 07/17/18 05:43 Urine Nitrite Negative (Negative) 07/17/18 05:43 Urine Bilirubin Negative (Negative) 07/17/18 05:43 Urine Urobilinogen Normal mg/dL (Normal) 07/17/18 05:43 Ur Leukocyte Esterase Negative (Negative) 07/17/18 05:43 Salicylates < 2.5 mg/dL (15.0-30.0) L 07/17/18 05:37 Urine Opiates Screen Negative ng/mL (Owjycp=047) 07/17/18 05:43 Acetaminophen < 10 mcg/mL (10-20) L 07/17/18 05:37 Ur Barbiturates Screen Negative ng/mL (Uppnsd=578) 07/17/18 05:43 Ur Phencyclidine Scrn Negative ng/mL (Cutoff=25) 07/17/18 05:43 Ur Amphetamines Screen Positive ng/mL (Ikacxp=2808) H 07/17/18 05:43 U Benzodiazepines Scrn Negative ng/mL (Yentkl=378) 07/17/18 05:43 Urine Cocaine Screen Positive ng/mL (Cutoff= 300) H 07/17/18 05:43 U Marijuana (THC) Screen Negative ng/mL (Cutoff = 50) 07/17/18 05:43 Ur Drug Screen Interp See Below 07/17/18 05:43 Ethyl Alcohol < 10 mg/dL (Less than 10) 07/17/18 05:37 Assessment and Plan (1) Suicidal ideation Current visit: Yes Status: Acute Plan: Admit inpatient for safety and stabilization, Close observation, Suicide Precautions per unit protocol, Encourage participation in unit milieu, Group Therapy, Monitor sleep, Monitor appetite Additional Plan: Requests treatment records from [facility] and [facility] Risks, benefits, side effects, alternatives discussed w/pt: Yes Patient agreeable to treatment: Yes (2) Stimulant dependence Current visit: Yes Status: Acute Plan: Admit inpatient for safety and stabilization, Close observation, Suicide Precautions per unit protocol, Encourage participation in unit milieu, Group Therapy, Monitor sleep, Monitor appetite (3) Depressive disorder Current visit: Yes Status: Acute Plan: Admit inpatient for safety and stabilization, Close observation, Suicide Precautions per unit protocol, Encourage participation in unit milieu, Group Therapy, Monitor sleep, Monitor appetite
[2018-07-17] MEDS: hydrOXYzine pamoate 25 MG CAPSULE PO PRN (20:57)
[2018-07-17] MEDS: traZODone 50 MG TABLET PO PRN (20:57)
[2018-07-18] MEDS: Nicotine 14 MG PATCH.TD24 TD SCH (08:55)
--- NOTE | 2018-07-18 15:12 | Psychiatry Progress Note ---
Date of Encounter: 07/18/18 Time of Encounter: 15:10 Subjective Interval history: Patient seen for follow-up. Case discussed with treatment team. Staff report patient is spending most of time in his room but he interacts with peers and staff. He slept after taking Seroquel. He met was certified social workers in health care to discuss his discharge plans and follow-up. Patient denies suicidal or homicidal ideation and he is showing interest in getting back into treatment for mental health's and substance abuse. Review of Systems Psychiatric: Reports: suicidal ideation Results - Vital Signs Vital Signs: Temp Pulse Resp BP Pulse Ox 97.7 F 64 18 116/73 98 07/18/18 09:00 07/18/18 09:00 07/18/18 09:00 07/18/18 09:00 07/17/18 10:45 Assessment and Plan (1) Suicidal ideation Current visit: Yes Status: Acute Plan: Continue hospitalization, Close observation, Suicide Precautions per unit protocol, Encourage participation in unit milieu, Group Therapy, Monitor sleep, Monitor appetite Risks, benefits, side effects, alternatives discussed w/pt: Yes Patient agreeable to treatment: Yes (2) Stimulant dependence Current visit: Yes Status: Acute Plan: Continue hospitalization, Close observation, Suicide Precautions per unit protocol, Encourage participation in unit milieu, Group Therapy, Monitor sleep, Monitor appetite (3) Depressive disorder Current visit: Yes Status: Acute Plan: Continue hospitalization, Close observation, Suicide Precautions per unit protocol, Encourage participation in unit milieu, Group Therapy, Monitor sleep, Monitor appetite Additional Plan: Discussed medication with the patient after review of the records he is interested in going back on more stabilizer Trileptal we will start patient on the Trileptal 100 mg twice daily and continue to monitor Risks, benefits, side effects, alternatives discussed w/pt: Yes Patient agreeable to treatment: Yes Consult Discharge Plan - Plan Referrals: NONE,PCP [Primary Care Provider] - Psychiatry Exam - Constitutional Vitals: Temp Pulse Resp BP Pulse Ox 97.7 F 64 18 116/73 98 07/18/18 09:00 07/18/18 09:00 07/18/18 09:00 07/18/18 09:00 07/17/18 10:45 General appearance: age & developmentally appropriate, well-groomed, well- nourished, average - Musculoskeletal Gait: normal Station: relaxed Strength & Tone: normal for patient - Psychiatric Patient Orientation: Yes Person, Yes Time, Yes Place Level of alertness: Alert Behavior: calm, cooperative, withdrawn Psychomotor activity: Normal Eye Contact: Maintains Eye Contact Mood Description: Euthymic/stable Affect description: congruent with mood, constricted Speech Volume: Normal Speech pattern: normal rate, normal rhythm, normal tone, fluent, spontaneous Language & Vocabulary: consistent with education Thought Process: Linear, Goal Oriented Thought Content: No Suicidal ideation, No Homicidal ideation, No Overt delusions Perceptual Disturbances: No Auditory hallucinations, No Visual hallucinations Attention Span Ability: Capable of Focused Attention Memory Description: Grossly Intact Patient Reliability: Reliable Historian Fund of knowledge: Yes abstraction ability, Yes aware of current events Intelligence Estimate: Average Judgment: Limited Insight: Partial
[2018-07-18] MEDS: hydrOXYzine pamoate 25 MG CAPSULE PO PRN (21:11)
[2018-07-18] MEDS: OXcarbazepine 150 MG TABLET PO SCH (21:11)
[2018-07-18] MEDS: traZODone 50 MG TABLET PO PRN (23:05)
[2018-07-19] MEDS: Nicotine 14 MG PATCH.TD24 TD SCH (12:00)
[2018-07-19] MEDS: OXcarbazepine 150 MG TABLET PO SCH (12:00)
[2018-07-19 12:02] VITALS: BP 104/70
--- NOTE | 2018-07-19 13:30 | Discharge Summary ---
Date of Encounter: 07/19/18 Time of Encounter: 12:00 Diagnosis - Discharge Diagnosis (1) Suicidal ideation Status: Acute (2) Stimulant dependence Status: Acute (3) Depressive disorder Status: Acute Medications - Discharge Medications Venlafaxine HCl [Venlafaxine HCl ER] 75 mg PO QAM 07/17/18 [History] traZODone [TraZODone] 50 mg PO HS PRN 07/17/18 [History] Allergy/AdvReac Type Severity Reaction Status Date / Time No Known Allergies Allergy Verified 03/05/17 16:57 Results Procedures and tests throughout hospitalization: Completed Lab Orders Category Date Time Status Acetaminophen Stat Lab 07/17/18 05:37 Completed Basic Metabolic Panel Stat Lab 07/17/18 05:37 Completed Complete Blood Count [HEME] Stat Lab 07/17/18 05:37 Completed Drug Screen, Urine [UCHEM] Stat Lab 07/17/18 05:43 Completed Ethanol Stat Lab 07/17/18 05:37 Completed Salicylate Stat Lab 07/17/18 05:37 Completed Urinalysis reflex Microscopic [URIN] Stat Lab 07/17/18 05:43 Completed Provider Date of admission: 07/17/18 09:59 Primary care physician: PCP NONE Consults: 07/17/18 11:38 Consult to Pastoral Services [CONS] Routine Comment: Discharging clinician: Mann Andujar Psychiatry Exam - Constitutional Vitals: Temp Pulse Resp BP Pulse Ox 98.3 F 78 18 104/70 99 07/19/18 09:00 07/19/18 09:00 07/19/18 09:00 07/19/18 09:00 07/19/18 09:00 General appearance: age & developmentally appropriate, well-groomed, well- nourished, thin - Musculoskeletal Gait: normal Station: relaxed Strength & Tone: normal for patient - Psychiatric Patient Orientation: Yes Person, Yes Time, Yes Place Level of alertness: Alert Behavior: calm, cooperative Psychomotor activity: Normal Eye Contact: Maintains Eye Contact Mood Description: Euthymic/stable Affect description: congruent with mood, full range Speech Volume: Normal Speech pattern: normal rate, normal rhythm, normal tone, fluent, spontaneous Language & Vocabulary: consistent with education Thought Process: Linear, Goal Oriented Thought Content: No Suicidal ideation, No Homicidal ideation, No Overt delusions Perceptual Disturbances: No Auditory hallucinations, No Visual hallucinations Attention Span Ability: Capable of Focused Attention Memory Description: Grossly Intact Patient Reliability: Reliable Historian Fund of knowledge: Yes abstraction ability, Yes aware of current events Intelligence Estimate: Average Judgment: Limited Insight: Partial Hospital Course Hospital course: Mr. Elkins is a 48 year old male admitted from the emergency room for suicidal ideation and intoxication with cocaine and methamphetamine. For details admission please see H&P On the units patient was evaluated and his records from previous hospitalization reviewed and was started on Trileptal 150 mg twice a day in addition to Effexor XR 75 mg daily. Patient reported improved sleep also he was using Seroquel for sleep. He self isolated in his room most of the time he was educated about substance abuse and compliance with medication treatment. He denies suicidal ideation he was motivated to get his outpatient treatment starting and social work coordinator planned follow-up appointments. On discharge patient was medically stable tolerating medication without side effects denies suicidal ideation he is discharged in stable condition. - Time Spent with Patient Total time spent providing and/or coordinating discharge services: Greater than 30 minutes Assessment and Plan - Patient/Caregiver Discharge Instructions Activity: resume usual activities as tolerated Diet: regular diet - Follow up [facility]24/[facility] 8:00 am (To establish as a client, you may walk-in on 07/24/2018, at 8:00am sharp, as new patients are seen first come first serve. Your case will be opened and you will develop a treatment plan that meets your individualized care needs. Please bring photo ID, insurance card and medication list with you. This intake appointment will last up to 3 hours.) Nino Villafuerte MD [Partnered Physician] - 07/27/18 3:00 pm (The above appointment is with Dr. Villafuerte for primary healthcare and medication management services.) Functional capacity at discharge: independent ambulation Overall status at discharge: Stable Disposition: Home, Self-Care Quality - Multiple Antipsychotics Patient discharged on 2 or more antipsychotic medications: No Procedures - Procedures Procedures: Medication Management, Crisis Stabilization, Supportive Therapy, Group Therapy, Psychoeducational Therapy
[2018-07-19] MEDS ORDERED: OXcarbazepine 150 MG TABLET PO ONE (13:34)
[2018-07-19] MEDS ORDERED: Nicotine 14 MG PATCH.TD24 TD ONE (13:34)
== END 2018-07-19 13:35 | disposition home or self-care (01) | DRG 897 ==
LOC: EMEROOARM 05:29 → 1ANU 09:59
PROVIDERS: ADMIT Psychiatry & Neurology Psychiatry; ATTEND Psychiatry & Neurology Psychiatry